=== PATIENT | female | born 1995 | race Caucasian/White ===

== ENCOUNTER 2016-04-04 21:49 | Inpatient (IN) | payer OTHER ==
[2016-04-05 04:29] LABS: HEMOGLOBIN 11.5 gm/dl (12.3-15.3); RED BLOOD COUNT 4.04 M/UL (4.00-5.10)
[2016-04-06 03:54] LABS: HEMOGLOBIN 10.8 gm/dl (12.3-15.3)
[2016-04-06] MEDS ORDERED: NORCO 5-325 TA1 EACH PO (11:53)
[2016-04-06] MEDS ORDERED: IBUPROFEN600 MG PO (11:53)
[2016-04-06] MEDS ORDERED: COLACE 100MG C100 MG PO (11:53)
== END 2016-04-06 14:11 | disposition home or self-care (01) | DRG 775 ==
LOC: GENOP 21:49 → OB 04-05 02:18
PROVIDERS: ADMIT Obstetrics & Gynecology
PROC: 10E0XZZ Delivery of Products of Conception, External Approach (ICD-10-PCS; principal; 2016-04-05)
PROC: 10907ZC Drainage of Amniotic Fluid, Therapeutic from Products of Conception, Via Natural or Artificial Opening (ICD-10-PCS; 2016-04-05)
PROC: 3E0R3CZ (ICD-10-PCS; 2016-04-05)
PROC: 3E0234Z Introduction of Serum, Toxoid and Vaccine into Muscle, Percutaneous Approach (ICD-10-PCS; 2016-04-06)
PROC: 3E0234Z Introduction of Serum, Toxoid and Vaccine into Muscle, Percutaneous Approach (ICD-10-PCS; 2016-04-06)
PROC: 3E0234Z Introduction of Serum, Toxoid and Vaccine into Muscle, Percutaneous Approach (ICD-10-PCS; 2016-04-06)
DX: O26.893 Other specified pregnancy related conditions, third trimester (principal); Z67.11 Type A blood, Rh negative; O99.214 Obesity complicating childbirth; E66.9 Obesity, unspecified; Z68.39 Body mass index [BMI] 39.0-39.9, adult; Z3A.38 38 weeks gestation of pregnancy; Z37.0 Single live birth; Z29.13 Encounter for prophylactic Rho(D) immune globulin; Z23 Encounter for immunization; O36.63X0 Maternal care for excessive fetal growth, third trimester, not applicable or unspecified; O09.293 Supervision of pregnancy with other poor reproductive or obstetric history, third trimester; O99.344 Other mental disorders complicating childbirth; F32.9 Major depressive disorder, single episode, unspecified; Z88.5 Allergy status to narcotic agent; Z80.41 Family history of malignant neoplasm of ovary; Z83.3 Family history of diabetes mellitus; Z82.49 Family history of ischemic heart disease and other diseases of the circulatory system; Z80.9 Family history of malignant neoplasm, unspecified
CPT/HCPCS: 51702; 81001; 82800; 85014; 85018; 85025; 85461; 86850; 86900; 86901; 90715; J2300; J2590; J2790; J2795; J3010; J7120; Q2039

== ENCOUNTER 2020-11-01 01:06 | Emergency (ER) | payer SELFPAY ==
[~2020-11-01 01:06] MED LIST: COLACE 100MG C100 MG PO; IBUPROFEN600 MG PO; NORCO 5-325 TA1 EACH PO
[2020-11-01] MEDS ORDERED: OMNICEF 300 MG300 MG PO (02:27)
== END 2020-11-01 02:49 | disposition home or self-care (01) ==
LOC: ER1 01:06
DX: N39.0 Urinary tract infection, site not specified (principal); Z90.89 Acquired absence of other organs; Z88.5 Allergy status to narcotic agent
CPT/HCPCS: 81001; 84703; 87086; 99284

== ENCOUNTER 2020-11-20 00:45 | Emergency (ER) | payer SELFPAY ==
[~2020-11-20 00:45] MED LIST changes: +OMNICEF 300 MG300 MG PO
== END 2020-11-20 01:18 | disposition home or self-care (01) ==
LOC: ER1 00:45
DX: R51.9 Headache, unspecified (principal); Z20.822 Contact with and (suspected) exposure to COVID-19
CPT/HCPCS: 99284; U0003

== ENCOUNTER 2021-09-26 23:41 | Outpatient (CLI) | payer OTHER | END 2021-09-27 02:02 | disposition home or self-care (01) | LOC: GENOP 23:41 | DX: O47.03 False labor before 37 completed weeks of gestation, third trimester (principal); Z3A.28 28 weeks gestation of pregnancy | CPT/HCPCS: G0463 ==